=== PATIENT | female | born 1975 | race Caucasian/White ===

== ENCOUNTER 2018-12-13 20:03 | Emergency (ER) | payer MEDICAID ==
[~2018-12-13] VITALS: Ht 160 cm; Wt 36.3 kg
[2018-12-13] MEDS ORDERED: ONDANSETRON HCL 4 MG/2 ML VIAL IV ONE (21:45)
[2018-12-13] MEDS ORDERED: MORPHINE SULFATE 4 MG/ML SYR/VIAL IV ONE (21:45)
[2018-12-13 22:02] LABS: Basophils # (auto) 0.1 uL; Eosinophils # (auto) 0.3 uL
[2018-12-13 22:03] LABS: Eosinophils % (auto) 2.2 % (0.0-7.0); Lymphocytes # (auto) 3.1 uL; Lymphocytes % (auto) 22.1 % (10.0-50.0); Mean Corpuscular Hemoglobin 29.8 pg (28.0-32.0); Mean Corpuscular Hgb Conc. 32.4 g/dL (32.0-36.0); Mean Corpuscular Volume 91.8 fL (80.0-100.0); Monocytes # (auto) 0.5 uL; Monocytes % (auto) 3.7 % (0.0-12.0); Platelet Count (auto) 599 10^3/uL (140-450); Red Blood Cells 4.36 10^6/uL (4.0-5.20); Red Cell Distribution Width 14.4 % (11.8-14.3); White Blood Cell 14.1 10^3/uL (4.4-10.8)
[2018-12-13 22:15] LABS: BUN/Creatinine Ratio 16.6; Potassium 4.1 mmol/L (3.5-5.1)
[2018-12-13 22:22] LABS: Calcium 13.1 mg/dL (8.5-10.1)
[2018-12-13 22:24] LABS: INR 1.06 (0.9-1.15); Partial Thromboplastin Time 30.2 sec (23.64-32.05)
[2018-12-13 23:37] LABS: Albumin 3.9 g/dL (3.4-5.0)
[2018-12-13 23:40] LABS: Bilirubin, Total 0.5 mg/dL (0.2-1.0); Total Protein 9.8 g/dL (6.4-8.2)
[2018-12-13] MEDS ORDERED: SODIUM CHLORIDE 0.9% 2,000 ML IV ONE (23:45)
[2018-12-14] MEDS ORDERED: MORPHINE SULFATE 4 MG/ML SYR/VIAL IV ONE ×3 (00:45→20:15)
[2018-12-14] MEDS ORDERED: SODIUM CHLORIDE 0.9% 1,000 ML IV ONE ×2 (00:45→23:00)
[2018-12-14] MEDS ORDERED: ONDANSETRON HCL 4 MG/2 ML VIAL IV ONE ×4 (00:45→20:15)
--- NOTE | 2018-12-14 18:24 | NUR ---
WOUND CARE NOTE: Wound care in to see patient per wound care request regarding mid abdomen wound that are noted present on admission. Patient is is 43 y/o female with admitting diagnosis of Chest pain. Patient is resting in ER bed #18. She's awake, alert and oriented. Patient states pain to her abdomen "always there". She's able to turn and reposition self and her current Yobani score is 17. Noted linear scar to patient's abdomen with 0.5x0.5cm open area distal aspect of incision. There's 6 cm open partial thickness skin tear along abdominal incision.Wound is draining serous drainage, no odor noted. Surrounding skin has redness consistent of moisture associated skin damage. Cleanse abdominal wound with wound cleanser,patted dry with gauze. Applied sure prep skin protectant to morelia wound, covered wound with large abd pad and secured with Medipore tape. Patient tolerated well.Patient is not admitted at this time, awaiting to be transferred to [facility]. 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 RECOMMENDATION: Daily/PRN dressing change to abdominal wound per MD order, surgical consult if she will be admitted, Dietary consult, frequent turning and repositioning schedule as condition permits, redistribute pressure points with pillows, elevate heels on pillows, continue monitoring by wound care while patient is hospitalized. Addendum: 12/14/18 at 1858 by Marian Petersen RN Amended: Links added.
[2018-12-14] MEDS ORDERED: ONDANSETRON HCL 4 MG/2 ML VIAL ONE (19:41)
[2018-12-14 22:14] LABS: Basophils # (auto) 0.1 uL; Basophils % (auto) 0.7 % (0.0-2.0); Eosinophils # (auto) 0.4 uL; Eosinophils % (auto) 5.4 % (0.0-7.0); Lymphocytes # (auto) 1.6 uL; Lymphocytes % (auto) 20.5 % (10.0-50.0); Mean Corpuscular Hemoglobin 30.2 pg (28.0-32.0); Mean Corpuscular Hgb Conc. 32.3 g/dL (32.0-36.0); Mean Corpuscular Volume 93.6 fL (80.0-100.0); Monocytes # (auto) 0.4 uL; Monocytes % (auto) 4.9 % (0.0-12.0); Neutrophils # (auto) 5.5 uL; Neutrophils % (auto) 68.5 % (37.0-80.0); Platelet Count (auto) 394 10^3/uL (140-450); Red Blood Cells 3.63 10^6/uL (4.0-5.20); Red Cell Distribution Width 14.8 % (11.8-14.3)
[2018-12-14 22:34] LABS: Albumin 3.1 g/dL (3.4-5.0); Calcium 9.9 mg/dL (8.5-10.1); Potassium 3.6 mmol/L (3.5-5.1)
[2018-12-14 22:37] LABS: BUN/Creatinine Ratio 17.3
[2018-12-14 22:39] LABS: Bilirubin, Total 0.4 mg/dL (0.2-1.0); Total Protein 7.3 g/dL (6.4-8.2)
[2018-12-14] MEDS ORDERED: metroNIDAZOLE 500MG/100ML 100 ML IV ONE (23:00)
[2018-12-14] MEDS ORDERED: CIPROFLOXACIN 400MG/200ML 200 ML IV ONE (23:00)
[2018-12-14 23:45] LABS: Alcohol, Urine < 3.0 mg/dL (0-5); Barbiturate Scree,Urine NEGATIVE (NEGATIVE); Benzodiazephine Screen, Urine NEGATIVE (NEGATIVE); Cannabinoid Screen, Urine NEGATIVE (NEGATIVE); Cocaine Screen, Urine NEGATIVE (NEGATIVE); Opiate Scree,Urine POSITIVE (NEGATIVE); Phencyclidine Screen, Urine NEGATIVE (NEGATIVE)
[2018-12-14 23:46] LABS: Urine Amorphous Crystal FEW /hpf (None Seen); Urine Bacteria FEW /hpf (None Seen); Urine Blood Negative /uL (Negative); Urine Hyaline Cast MANY /lpf (0 - 2); Urine Mucus FEW (None Seen); Urine Specific Gravity 1.011 (1.001-1.035); Urine WBC 11 /hpf (0 - 5)
[2018-12-14 23:55] LABS: Amphetamine Screen, Urine NEGATIVE (NEGATIVE)
[2018-12-15] MEDS ORDERED: MORPHINE SULFATE 4 MG/ML SYR/VIAL IV ONE ×3 (02:30→17:00)
[2018-12-15] MEDS ORDERED: ONDANSETRON HCL 4 MG/2 ML VIAL IV ONE ×3 (02:30→17:00)
--- NOTE | 2018-12-15 17:21 | NUR ---
SS consult regarding possible transfer to [facility] as well as possible SNF placement. Pt was recently admitted here and transfer to [facility] ( where pt had previous surgeryin May) was attempted. Pt was declined for transfer at that time by facility due to it being a lateral transfer per facility transfer center. Contacted [facility], regarding transfer of this pt. Per Rosina, must have a doctor to doctor before being able to facilitate a possible transfer. Notified nurse, Rachael, of the above and if ER MD was willing to connect with [facility] ER MD had spoken with 2 AV MD's on last night, including the surgeon who did her previous surgery but he wants to wait 3 months until her body has recovered before additional surgery. Pt has [facility] which is a [employer] that is out of area. Previous attempts to obtain a contracted SNF were unsuccessful due to being outside of her contracted area ( 15 SNF's were contacted and all declined pt for placement). Spoke with pt's daughter, Sandy, who stated that pt had been staying with her but that she rents and cannot have anyone else staying in the home. Daughter is attempting to assist pt by changing her insurance from the [employer] to [facility] which will cover SNF as well as Home health if appropriate. Daughter stated she spoke with [facility] today and that it should show up in the system on tomorrow. Will followup with admitting on tomorrow.
[2018-12-15] MEDS ORDERED: HYDROcodone-ACET 5/325MG TAB PO ONE (20:30)
[2018-12-16] MEDS ORDERED: ONDANSETRON HCL 4 MG/2 ML VIAL IV ONE ×2 (01:45→08:45)
[2018-12-16] MEDS ORDERED: MORPHINE SULFATE 4 MG/ML SYR/VIAL IV ONE (01:45)
[2018-12-16] MEDS ORDERED: MORPHINE SULF INJ 2 MG/ML SYRINGE 1ML IV ONE ×2 (08:45→16:30)
--- NOTE | 2018-12-16 10:31 | NUR ---
Received referral to see homeless pt in ER. Pt is aleert and oriented. Pt states she was living with daughter but they had a misunderstanding and she was told to leave. Pt has a colostomy and states she has no supplies and it unsure of how to take care of it. Pt states she would like to go to a facility who will take care of her. However she does not have any payer source to pay for it. Pt came from [facility] is working on transferring back.
[2018-12-16] MEDS ORDERED: PROMETHAZINE HCL 25 MG/ML 1ML IV ONE (14:00)
[2018-12-16 15:21] LABS: Basophils # (auto) 0 uL; Basophils % (auto) 0.4 % (0.0-2.0); Eosinophils # (auto) 0.3 uL; Eosinophils % (auto) 3.1 % (0.0-7.0); Hematocrit 36.7 % (36.0-46.0); Lymphocytes # (auto) 1.5 uL; Lymphocytes % (auto) 16.5 % (10.0-50.0); Mean Corpuscular Hemoglobin 31.6 pg (28.0-32.0); Mean Corpuscular Hgb Conc. 32.8 g/dL (32.0-36.0); Mean Corpuscular Volume 96.2 fL (80.0-100.0); Monocytes # (auto) 0.5 uL; Neutrophils # (auto) 6.6 uL; Platelet Count (auto) 300 10^3/uL (140-450); Red Blood Cells 3.82 10^6/uL (4.0-5.20); Red Cell Distribution Width 15.4 % (11.8-14.3); White Blood Cell 8.9 10^3/uL (4.4-10.8)
[2018-12-16 15:31] LABS: Urine Bacteria NONE SEEN /hpf (None Seen); Urine Blood Negative /uL (Negative); Urine Hyaline Cast FEW /lpf (0 - 2); Urine Specific Gravity 1.009 (1.001-1.035); Urine WBC 1 /hpf (0 - 5)
[2018-12-16 15:37] LABS: Albumin 2.5 g/dL (3.4-5.0); Calcium 8.5 mg/dL (8.5-10.1); Potassium 3.6 mmol/L (3.5-5.1)
[2018-12-16 15:40] LABS: BUN/Creatinine Ratio 11.1; Bilirubin, Total 2.5 mg/dL (0.2-1.0); Total Protein 6.6 g/dL (6.4-8.2)
--- NOTE | 2018-12-16 15:48 | NUR ---
Contacted Admitting dept and had pt's insurance reviewed and it is currently still showing [facility]. Notified daughter of the above. Per Sandy, she contacted [facility] who stated it has been submitted and should be coming up b y tomorrow.
[2018-12-16] MEDS ORDERED: PROCHLORPERAZINE EDISYLATE 5 MG/ML 2ML VIAL IV ONE (16:30)
[2018-12-16] MEDS ORDERED: LACTATED RINGER'S 1,000 ML IV ONE (19:45)
[2018-12-16 21:04] VITALS: BP 153/80
== END 2018-12-16 21:33 | disposition short-term general hospital (02) ==
LOC: ER 20:05
DX: E86.0 Dehydration (principal); D72.829 Elevated white blood cell count, unspecified; N28.9 Disorder of kidney and ureter, unspecified; E83.52 Hypercalcemia
CPT/HCPCS: 36415; 74176; 80048; 80053; 80307; 81001; 82040; 82247; 84075; 84155; 84450; 84460; 85025; 85610; 85730; 87077; 87186; 87205; 93005; 96361; 96365; 96366; 96367; 96375; 96376; 99285; J0780; J2270; J2405; J2550; J7030